=== PATIENT | male | born 1945 | race Caucasian/White ===

== ENCOUNTER 2018-11-23 14:05 | Emergency (ER) | payer OTHER ==
[~2018-11-23] VITALS: Ht 172.7 cm; Wt 81.7 kg
[~2018-11-23 14:05] MED LIST: ADVAIR HFA 115-12 G1 INH; ASPIR 8181 MG PO; CO Q-10100 MG PO; CRESTOR10 MG PO; HYTRIN 2MG CAPSU2 M1 PO; OMEPRAZOLE40 MG PO; SINGULAIR 10 MG10 M1 PO; TIROSINT112 MCG PO; ZANTAC 150MG T150 MG PO; ZOFRAN ODT4 MG PO
[2018-11-23 15:10] VITALS: BP 130/57
== END 2018-11-23 15:11 | disposition home or self-care (01) ==
LOC: ER 14:05
DX: S61.210A Laceration without foreign body of right index finger without damage to nail, initial encounter (principal); E78.00 Pure hypercholesterolemia, unspecified; J45.909 Unspecified asthma, uncomplicated; K21.9 Gastro-esophageal reflux disease without esophagitis; E03.9 Hypothyroidism, unspecified; N40.0 Benign prostatic hyperplasia without lower urinary tract symptoms; W26.8XXA Contact with other sharp object(s), not elsewhere classified, initial encounter; Y93.89 Activity, other specified; Y92.89 Other specified places as the place of occurrence of the external cause; Y99.8 Other external cause status